=== PATIENT | female | born 2000 | race Caucasian/White ===

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

== ENCOUNTER 2020-02-20 00:56 | Emergency (ER) | payer MEDICAID ==
[~2020-02-20] VITALS: Ht 157.5 cm; Wt 54.0 kg
[2020-02-20 01:02] VITALS: Ht 157.5 cm; Wt 54.0 kg
[2020-02-20 02:08] LABS: BASOPHIL % 0.2 % (0.2-1.3); PLATELET COUNT 334 x10^3mcL (179-408)
[2020-02-20 02:10] LABS: RED CELL DISTRIBUTION WIDTH 16.9 % (12.3-17.7); rbc morphology (normal/abnorm) NORMAL (NORMAL)
[2020-02-20 02:28] LABS: FREE T4 1.21 ng/dL (0.76-1.46); FREE THYROXINE INDEX 3.1 ug/dL (1.4-4.5); T4(THYROXINE) 8.2 ug/dL (4.7-13.3)
[2020-02-20 03:16] LABS: AMPHETAMINE QUAL UR NONE DETECTED (See below)
[2020-02-20 03:39] LABS: ALBUMIN 4.8 g/dL (3.4-5.0); ALKALINE PHOSPHATASE 83 U/L (46-116); ALT/SGPT 30 U/L (14-59); AST/SGOT 24 U/L (15-37); BILIRUBIN TOTAL 0.48 mg/dL (0.20-1.00); CALCIUM 10.1 mg/dL (8.5-10.1); CARBON DIOXIDE 21.2 mmol/L (21-32); CREATININE SERUM 0.9 mg/dL (0.6-1.0); GFR1 > 60 mL/min; GLUCOSE SERUM 124 mg/dL (74-106); LIPASE 95 IU/L (73-393)
[2020-02-20 03:42] LABS: TOTAL PROTEIN, SERUM 8.6 g/dL (6.4-8.2)
[2020-02-20 04:03] VITALS: BP 120/50
[2020-02-20 04:26] LABS: CHLORIDE SERUM 99 mmol/L (98-107); POTASSIUM SERUM 3.4 mmol/L (3.5-5.1); SODIUM SERUM 137 mmol/L (136-145)
[2020-02-20 09:23] LABS: T3 TOTAL 1.2 ng/mL
== END 2020-02-20 04:03 | disposition home or self-care (01) ==
LOC: ED 00:56
PROVIDERS: Emergency Medicine
DX: F19.10 Other psychoactive substance abuse, uncomplicated (principal); R10.13 Epigastric pain; R19.7 Diarrhea, unspecified
CPT/HCPCS: 84439; J7030; Q0162

== ENCOUNTER 2020-03-15 20:39 | Emergency (ER) | payer MEDICAID ==
[~2020-03-15] VITALS: Ht 162.6 cm; Wt 54.0 kg
[2020-03-15 20:48] VITALS: BP 135/80
== END 2020-03-15 22:35 | disposition left against medical advice (07) ==
LOC: ED 20:39
DX: Z53.21 Procedure and treatment not carried out due to patient leaving prior to being seen by health care provider (principal)

== ENCOUNTER 2020-04-09 22:10 | Emergency (ER) | payer MEDICAID ==
[~2020-04-09] VITALS: Ht 157.5 cm; Wt 54.0 kg
[2020-04-09 22:29] VITALS: Ht 157.5 cm; Wt 54.0 kg
[2020-04-09 23:48] VITALS: BP 110/63
== END 2020-04-09 23:48 | disposition home or self-care (01) ==
LOC: ED 22:10
DX: R29.0 Tetany (principal); R20.2 Paresthesia of skin